=== PATIENT | male | born 1945 | race Caucasian/White ===

== ENCOUNTER → 2017-10-03 | Outpatient (CLI) | payer MEDICARE ==
--- NOTE | 2017-10-03 08:47 | US ---
EXAMINATION TYPE: US duplex aorta DATE OF EXAM: 10/03/2017 COMPARISON: NONE CLINICAL HISTORY: Z13.9 ENCOUNTER FOR SCREENING; father had AAA; patient has controlled HTN EXAM MEASUREMENTS: Abdominal Aorta: Proximal: 2.4cm A/P Mid: 2.0cm A/P Distal: 2.4cm Transverse Bifurcation: Right KENNETH 1.2cm Transverse and Left KENNETH 1.1cm Transverse and arteries best seen in transverse view due to overlying bowel gas in longitudinal view. Aorta size appears wnl. Color flow patency is documented in abdominal aorta and Common Iliac Arteries . IMPRESSION: 1. No evidence for abdominal aortic aneurysm. Mild atheromatous change noted.
== END | disposition home or self-care (01) ==
LOC: RADUSWWP 08:05
PROVIDERS: ATTEND Family Medicine
DX: I70.0 Atherosclerosis of aorta (principal)
CPT/HCPCS: 93979

== ENCOUNTER 2018-11-28 06:22 | Day surgery (SDC) | payer MEDICARE ==
[2018-11-26 10:56] VITALS: BMI 28.1
[~2018-11-28 06:22] MED LIST: LACTATED RINGERS 1,000 ML IV SCH; LIDOCAINE 1% 20 ML VIAL (10MG/ML) FOR IV START INTRADERMA PRN
[2018-11-28 07:13] VITALS: RESP 16; TEMP 97.3
[2018-11-28 07:16] LABS: Glucose,Whole Blood 158 mg/dL (75-99)
[2018-11-28] MEDS ORDERED: PROPOFOL 10 MG/ML 20 ML VIAL IV ONE (07:27)
[2018-11-28] MEDS ORDERED: LIDOCAINE 1% INJ 10MG/ML (20 ML MDV) ONE (07:27)
--- NOTE | 2018-11-28 07:45 | P.PCN ---
Date of Procedure: 11/28/18 Procedure(s) Performed: BRIEF HISTORY: Patient is a 72-year-old pleasant male, scheduled for an elective colonoscopy as a part of evaluation of prior history of colon polyps. Last colonoscopy was 5 years ago. PROCEDURE PERFORMED: Colonoscopy with snare polypectomy. PREOPERATIVE DIAGNOSIS: History of colon polyps. IV sedation per Anesthesia. PROCEDURE: After informed consent was obtained, the patient, was brought into the endoscopy unit. IV sedation was administered by Anesthesia under continuous monitoring. Digital rectal examination was normal. Initially the Olympus CF-160 flexible video colonoscope was then inserted in the rectum, gradually advanced into the cecum without any difficulty. Careful examination was performed as the scope was gradually being withdrawn. Ileocecal valve and the appendiceal orifice were visualized and appeared normal. Prep was excellent. Mucosa of the cecum, was normal. In the ascending colon there was a 7-8 mm broad-based ascending colon, transverse colon, descending colon, sigmoid colon, and rectum appeared normal. Retroflexion was performed in the rectum and no lesions were seen. The patient tolerated the procedure well. IMPRESSION: 7-8 mm broad-based ascending colon polyp status post polypectomy Rest of the colon appeared normal RECOMMENDATIONS: Findings of this examination were discussed with the patient as well as his family. He was advised to follow with the biopsy results. If the biopsy shows an adenoma he can have a repeat colonoscopy in 5 years.
[2018-11-28 08:00] LABS: Glucose,Whole Blood 143 mg/dL (75-99)
[2018-11-28 08:05] VITALS: BP 119/73; PULSE 60
== END 2018-11-28 08:25 | disposition home or self-care (01) ==
LOC: ORWHC2ENDO 06:22
PROVIDERS: ATTEND Internal Medicine Gastroenterology
DX: Z12.11 Encounter for screening for malignant neoplasm of colon (principal); Z86.010 Personal history of colon polyps; D12.2 Benign neoplasm of ascending colon; Z88.8 Allergy status to other drugs, medicaments and biological substances; I10 Essential (primary) hypertension; E78.5 Hyperlipidemia, unspecified; G47.33 Obstructive sleep apnea (adult) (pediatric); Z87.891 Personal history of nicotine dependence; Z79.84 Long term (current) use of oral hypoglycemic drugs; Z79.82 Long term (current) use of aspirin; Z79.899 Other long term (current) drug therapy; E11.9 Type 2 diabetes mellitus without complications
CPT/HCPCS: 88305; 45385; J2001; J2704